=== PATIENT | male | born 1965 | race Caucasian/White ===

== ENCOUNTER 2018-02-07 13:22 | Inpatient (IN) | payer OTHER ==
[~2018-02-07] VITALS: Ht 172.7 cm; Wt 113.9 kg
[2018-02-07] MEDS ORDERED: ASPIRIN 81 MG TABLET CHEW PO ONE (14:00)
[2018-02-07 14:09] LABS: BASOPHILS # (AUTO) 0.06 x10^3/uL (0-0.1); BASOPHILS % (AUTO) 1 % (0-1); EOSINOPHILS # (AUTO) 0.45 x10^3/uL (0-0.4); EOSINOPHILS % (AUTO) 4 % (1-7); LYMPHOCYTES % (AUTO) 22 % (22-44); MD NO; MEAN CORPUSCULAR HEMOGLOBIN 32.8 pg (27.5-34.5); MEAN CORPUSCULAR HGB CONC 34.4 g/dL (33.2-36.2); MEAN CORPUSCULAR VOLUME 95.4 fL (81-97); MEAN PLATELET VOLUME 8.7 fL (7.4-10.4); MONOCYTES # (AUTO) 0.86 x10^3/uL (0.2-0.8); MONOCYTES % (AUTO) 7 % (2-9); NEUTROPHILS # (AUTO) 7.72 x10^3/uL (1.8-6.8); NEUTROPHILS % (AUTO) 67 % (42-75); PLATELET COUNT 253 x10^3/uL (130-400); RED BLOOD COUNT 5.17 x10^6/uL (4.38-5.82); RED CELL DISTRIBUTION WIDTH 12.3 % (9.4-14.8)
[2018-02-07 14:21] LABS: ANION GAP 8 mmol/L (5-15); CALCIUM 9.3 mg/dL (8.5-10.1); CHLORIDE 109 mmol/L (98-107)
[2018-02-07 14:26] LABS: ALANINE AMINOTRANSFERASE 61 U/L (12-78); ALKALINE PHOSPHATASE 90 U/L (45-117); BILIRUBIN,TOTAL 0.6 mg/dL (0.2-1.0); CREATININE 1.35 mg/dL (0.7-1.3); TOTAL PROTEIN 7.7 g/dL (6.4-8.2); TROPONIN I < 0.015 ng/mL (0.000-0.045)
[2018-02-07] MEDS ORDERED: lisinopril PO (15:40)
[2018-02-07] MEDS ORDERED: ASPIRIN 81 MG TABLET CHEW ONE (15:43)
[2018-02-07] MEDS ORDERED: NITROGLYCERIN SINGLE TAB 0.4 MG SL ONE ×2 (16:23→17:00)
[2018-02-07] MEDS ORDERED: MORPHINE SULFATE 4 MG/ML, 1ML ONE (16:24)
[2018-02-07] MEDS ORDERED: MORPHINE SULFATE 4 MG/ML, 1ML IVPush PRN (16:30)
[2018-02-07] MEDS ORDERED: SODIUM CHLORIDE FLUSH 10ML SYR IVF ONE (16:30)
[2018-02-07] MEDS: NITROGLYCERIN SINGLE TAB 0.4 MG SL PRN ×2 (16:33→17:01)
[2018-02-07 16:38] LABS: INTERNATIONAL NORMALIZED RATIO 0.97 (0.93-1.1)
[2018-02-07] MEDS ORDERED: NICOTINE 21 MG/24 HR PATCH.TD24 ONE (17:03)
[2018-02-07] MEDS ORDERED: ACETAMINOPHEN 325 MG TABLET PO PRN (17:30)
[2018-02-07] MEDS ORDERED: morphine SULFATE 10 MG/ML, 1ML IVPush PRN (17:30)
[2018-02-07] MEDS ORDERED: LORazepam 0.5MG TABLET PO PRN (17:30)
[2018-02-07] MEDS ORDERED: LORazepam 2 MG/ML, 1ML IV PRN ×4 (17:30)
[2018-02-07] MEDS ORDERED: NITROGLYCERIN 0.4 MG/SPRAY SL PRN (17:30)
[2018-02-07] MEDS ORDERED: NICOTINE 21 MG/24 HR PATCH.TD24 TD ONE (17:30)
[2018-02-07] MEDS ORDERED: NITROGLYCERIN 0.4 MG BOTTLE (25 TABS) SL PRN (17:30)
[2018-02-07] MEDS ORDERED: ONDANSETRON ODT 4 MG PO PRN (17:30)
[2018-02-07] MEDS ORDERED: ONDANSETRON 2MG/ML, 2ML IVPush PRN (17:30)
[2018-02-07] MEDS ORDERED: LORazepam 1MG TABLET PO PRN ×3 (17:30)
[2018-02-07 17:49] LABS: HEMOGLOBIN A1C 5.4 % (4.2-6.3)
[2018-02-07] MEDS ORDERED: POTASSIUM CHLORIDE 20 MEQ, MAGNESIUM SULFATE 1 GM, THIAMINE 200 MG, FOLIC ACID 1 MG, MV... IV SCH (18:30)
[2018-02-07] MEDS ORDERED: ENOXAPARIN 40 MG/0.4 ML SQ SCH (18:30)
[2018-02-07 18:42] VITALS: BP 143/89
[2018-02-07] MEDS ORDERED: ALBUTEROL SULFATE 2.5 MG/3 ML ONE ×2 (19:36→19:37)
[2018-02-07] MEDS ORDERED: ALBUTEROL SULFATE 2.5 MG/3 ML NPPB PRN (20:00)
[2018-02-07 20:03] LABS: TROPONIN I < 0.015 ng/mL (0.000-0.045)
[2018-02-07 20:04] VITALS: BP 123/64
[2018-02-07 21:36] VITALS: BP 130/87
[2018-02-08 00:06] VITALS: BP 132/77
[2018-02-08 03:08] LABS: TROPONIN I < 0.015 ng/mL (0.000-0.045)
[2018-02-08 05:57] LABS: BASOPHILS # (AUTO) 0.04 x10^3/uL (0-0.1); BASOPHILS % (AUTO) 0 % (0-1); EOSINOPHILS # (AUTO) 0.43 x10^3/uL (0-0.4); EOSINOPHILS % (AUTO) 5 % (1-7); LYMPHOCYTES # (AUTO) 2.74 x10^3/uL (1-3.4); LYMPHOCYTES % (AUTO) 29 % (22-44); MD NO; MEAN CORPUSCULAR HEMOGLOBIN 32.5 pg (27.5-34.5); MEAN CORPUSCULAR HGB CONC 34.3 g/dL (33.2-36.2); MEAN CORPUSCULAR VOLUME 94.7 fL (81-97); MEAN PLATELET VOLUME 9.1 fL (7.4-10.4); MONOCYTES # (AUTO) 0.84 x10^3/uL (0.2-0.8); MONOCYTES % (AUTO) 9 % (2-9); NEUTROPHILS # (AUTO) 5.27 x10^3/uL (1.8-6.8); NEUTROPHILS % (AUTO) 57 % (42-75); PLATELET COUNT 213 x10^3/uL (130-400); RED BLOOD COUNT 4.54 x10^6/uL (4.38-5.82); RED CELL DISTRIBUTION WIDTH 12.7 % (9.4-14.8)
[2018-02-08] MEDS ORDERED: ASPIRIN 325 MG TABLET EC PO SCH (06:00)
[2018-02-08 06:06] LABS: ALBUMIN 3.5 g/dL (3.4-5.0); ANION GAP 7 mmol/L (5-15); CALCIUM 8.4 mg/dL (8.5-10.1); CHLORIDE 108 mmol/L (98-107)
[2018-02-08 06:10] LABS: ALANINE AMINOTRANSFERASE 48 U/L (12-78); ALKALINE PHOSPHATASE 74 U/L (45-117); BILIRUBIN,TOTAL 0.6 mg/dL (0.2-1.0); CHOLESTEROL, TOTAL 170 mg/dL (140-239); CREATININE 1.17 mg/dL (0.7-1.3); HDL CHOL % 25 % (26-37); HDL CHOLESTEROL (DIRECT) 42 mg/dL (40-60); LDL CHOLESTEROL,CALCULATED 79 mg/dL (54-169); LDL/HDL RATIO 1.9 (0.5-3.0); TOTAL PROTEIN 6.5 g/dL (6.4-8.2); TRIGLYCERIDES 244 mg/dL (50-200); VLDL CHOLESTEROL 49 mg/dL (0-25)
[2018-02-08 08:00] VITALS: BP 141/83
[2018-02-08] MEDS: SODIUM CHLORIDE 0.9% 1,000 ML IV SCH ×2 (08:20→08:32)
[2018-02-08] MEDS ORDERED: ASPI-191 PO (13:41)
[2018-02-08] MEDS ORDERED: ATOR20TA9 PO (13:41)
[2018-02-08] MEDS ORDERED: METO25TA4 PO (13:41)
== END 2018-02-08 15:27 | disposition home or self-care (01) | DRG 313 ==
LOC: ED 15:54 → EDIP 16:42 → 5SO 18:11 → DCLOUNGE 02-08 15:18
PROVIDERS: ADMIT Hospitalist; ATTEND Hospitalist
DX: R07.89 Other chest pain (principal); N17.9 Acute kidney failure, unspecified; D72.829 Elevated white blood cell count, unspecified; E78.5 Hyperlipidemia, unspecified; F10.10 Alcohol abuse, uncomplicated; Y90.9 Presence of alcohol in blood, level not specified; F17.210 Nicotine dependence, cigarettes, uncomplicated; I10 Essential (primary) hypertension; I44.7 Left bundle-branch block, unspecified; Z79.82 Long term (current) use of aspirin
CPT/HCPCS: 36415; 71046; 78452; 80053; 80061; 83036; 83690; 83880; 84484; 85025; 85610; 85730; 93005; 93017; 93306; 94640; 96374; J1650; J3411; J3475; J3480; A9502; C9898; J7030